=== PATIENT | female | born 1970 | race African-American/Black ===

== ENCOUNTER 2021-10-16 15:45 | Observation (INO) | payer BC, OTHER ==
[2021-10-16] MEDS ORDERED: dilTIAZem HCL 50 MG/10 ML - 10 ML VIAL IVPUSH ONE (16:24)
[2021-10-16] MEDS ORDERED: SODIUM CHLORIDE 0.9% 500 ML INFUS.BAG IV ONE (16:30)
[2021-10-16] MEDS ORDERED: dilTIAZem HCL 125 MG/25 ML - 25 ML VIAL ONE (16:49)
[2021-10-16 16:52] LABS: BASO % 0.9 % (0-2.0); EOS % 2.9 % (0-4.5); HEMATOCRIT 41.6 % (32.4-45.2); LYMPH % 31.1 % (8-40); MCHC 33.5 g/dl (32.0-36.0); MEAN CELL VOLUME 80.6 fl (80-96); MEAN PLT VOLUME 8.6 fl (7.5-11.1); MONO % 11.4 % (3.8-10.2); NEUT % 53.7 % (42.8-82.8); PLATELET COUNT 386 10^3/uL (134-434); RBC 5.17 M/mm3 (3.60-5.2); RDW 14.8 % (11.6-15.6); WHITE BLOOD COUNT 6.2 K/mm3 (4.0-10.0)
[2021-10-16 17:15] LABS: ALBUMIN 3.9 g/dl (3.4-5.0); CALCIUM 9.7 mg/dL (8.5-10.1)
[2021-10-16 17:16] LABS: BLOOD UREA NITROGEN 19.2 mg/dL (7-18); MAGNESIUM 2.3 mg/dL (1.8-2.4)
[2021-10-16 17:19] LABS: CREATININE 0.7 mg/dL (0.55-1.3)
[2021-10-16 17:21] LABS: BILIRUBIN,TOTAL 0.4 mg/dL (0.2-1); TOT PROT 8.1 g/dl (6.4-8.2)
[2021-10-16 17:27] LABS: INR 1.04 (0.83-1.09)
[2021-10-16 17:29] LABS: ACTIVATED PTT 36.2 SECONDS (25.2-36.5)
[2021-10-16] MEDS ORDERED: dilTIAZem HCL 30 MG TABLET ONE (18:46)
[2021-10-16] MEDS ORDERED: dilTIAZem HCL 30 MG TABLET PO SCH (22:00)
[2021-10-17 00:10] VITALS: BMI 27.7
[2021-10-17] MEDS: dilTIAZem HCL 30 MG TABLET PO SCH ×3 (00:13→13:30)
[2021-10-17] MEDS: ENOXAPARIN NA (PORCINE) 80 MG/0.8 ML DISP.SYRIN SQ SCH ×2 (00:13→10:09)
[2021-10-17 03:13] LABS: PH,URINE 7.5 (5.0-8.0); URINE APPEARANCE CLEAR; URINE BILIRUBIN NEGATIVE (NEGATIVE); URINE COLOR YELLOW; URINE GLUCOSE (UA) NEGATIVE (NEGATIVE); URINE KETONE NEGATIVE (NEGATIVE); URINE LEUK ESTERASE NEGATIVE (NEGATIVE); URINE NITRITE NEGATIVE (NEGATIVE); URINE PROTEIN NEGATIVE (NEGATIVE); URINE UROBILINOGEN 0.2 mg/dL (0.2-1.0)
[2021-10-17 03:15] LABS: METHADONE, UR NEGATIVE (NEGATIVE); PHENCYCLIDINE,URINE NEGATIVE (NEGATIVE)
[2021-10-17 03:17] LABS: COCAINE, UR NEGATIVE (NEGATIVE); OPIATES, URI NEGATIVE (NEGATIVE); URINE BARBITURATES NEGATIVE (NEGATIVE)
[2021-10-17 03:25] LABS: URINE AMPHETAMINES NEGATIVE (NEGATIVE); URINE BENZODIAZEPINES NEGATIVE (NEGATIVE)
[2021-10-17 08:58] LABS: BASO % 1.2 % (0-2.0); EOS % 3.7 % (0-4.5); HEMATOCRIT 38.8 % (32.4-45.2); HEMOGLOBIN 12.6 GM/dL (10.7-15.3); LYMPH % 31.1 % (8-40); MCH 26.5 pg (25.7-33.7); MCHC 32.5 g/dl (32.0-36.0); MEAN CELL VOLUME 81.6 fl (80-96); MEAN PLT VOLUME 8.6 fl (7.5-11.1); MONO % 11.8 % (3.8-10.2); NEUT % 52.2 % (42.8-82.8); PLATELET COUNT 298 10^3/uL (134-434); RBC 4.75 M/mm3 (3.60-5.2); WHITE BLOOD COUNT 5.7 K/mm3 (4.0-10.0)
[2021-10-17] MEDS ORDERED: amLODIPine BESYLATE 5 MG TABLET (FP) PO SCH (10:00)
[2021-10-17 10:24] LABS: MAGNESIUM 2.1 mg/dL (1.8-2.4)
[2021-10-17 10:26] LABS: ALBUMIN 3.6 g/dl (3.4-5.0); CALCIUM 9.1 mg/dL (8.5-10.1)
[2021-10-17 10:28] LABS: CREATININE 0.6 mg/dL (0.55-1.3)
[2021-10-17 10:29] LABS: BILIRUBIN,TOTAL 0.4 mg/dL (0.2-1); N-TERMINAL BNP 275.4 pg/ml (5-125); TOT PROT 7.1 g/dl (6.4-8.2)
[2021-10-17] MEDS ORDERED: ASPIRIN 81 MG CHEWABLE TABLETS PO SCH (12:00)
[2021-10-17] MEDS ORDERED: APIXABAN 5 MG TABLET PO SCH (14:00)
[2021-10-17] MEDS ORDERED: metoPROLOL SUCCINATE 25 MG TAB.SR.24H (FP) PO SCH (14:15)
[2021-10-17 15:03] VITALS: BP 113/68; PULSE 70; TEMP 98.4
== END 2021-10-17 18:02 | disposition home or self-care (01) ==
LOC: JER 15:45 → JERBED 18:43 → UNDOADMOB 18:43 → INTOOBSV 18:43 → J4S 10-17 00:03 → JERBED 10-17 00:03 → J4S 10-17 09:53 → JERBED 10-17 09:53
PROVIDERS: ADMIT Hospitalist; ATTEND Nurse Practitioner Acute Care
PROC: 3E033GC Introduction of Other Therapeutic Substance into Peripheral Vein, Percutaneous Approach (ICD-10-PCS; principal; 2021-10-17)
DX: I48.0 Paroxysmal atrial fibrillation (principal); I10 Essential (primary) hypertension; I34.1 Nonrheumatic mitral (valve) prolapse; J98.4 Other disorders of lung
CPT/HCPCS: 36415; 71046-TC-FY; 71270-TC; 80053; 80061; 80307; 81003; 83036; 83735; 83880; 84100; 84439; 84443; 84481; 84484; 85025; 85610; 85730; 93005; 93010; 93306-TC; 96372; 99285-25; C9803-CS; G0378; Q9967; U0003; U0005

== ENCOUNTER 2023-12-17 14:54 | Emergency (ER) | payer BC, OTHER ==
[2023-12-17 15:27] VITALS: TEMP 98.5; BMI 23.3
[2023-12-17] MEDS ORDERED: METOPROLOL TARTRATE 5 MG/5 ML VIAL ONE (16:21)
[2023-12-17] MEDS: METOPROLOL TARTRATE 5 MG/5 ML VIAL IVPUSH ONE (16:49)
[2023-12-17 17:02] LABS: BASO % 1.4 % (0-2.0); EOS % 3.1 % (0-4.5); HEMATOCRIT 40.9 % (32.4-45.2); HEMOGLOBIN 13.9 GM/dL (10.7-15.3); LYMPH % 33.3 % (8-40); MCH 28.5 pg (25.7-33.7); MCHC 33.9 g/dl (32.0-36.0); MEAN CELL VOLUME 84.1 fl (80-96); NEUT % 53.2 % (42.8-82.8); PLATELET COUNT 349 10^3/uL (134-434); RBC 4.87 M/mm3 (3.60-5.2); RDW 14.2 % (11.6-15.6); WHITE BLOOD COUNT 7.3 K/mm3 (4.0-10.0)
[2023-12-17 17:19] LABS: POTASSIUM 3.6 mmol/L (3.5-5.1)
[2023-12-17 17:20] LABS: INR 1.15 (0.83-1.09); PROTHROMBIN TIME (PATIENT) 13.2 SEC (9.7-13.0)
[2023-12-17 17:22] LABS: ALBUMIN 4.1 g/dl (3.4-5.0); CALCIUM 9.7 mg/dL (8.5-10.1); MAGNESIUM 2.2 mg/dL (1.8-2.4)
[2023-12-17 17:25] LABS: CREATININE 0.6 mg/dL (0.55-1.3); PHOSPHOROUS 3.5 mg/dL (2.5-4.9)
[2023-12-17 17:27] LABS: BILIRUBIN,TOTAL 0.3 mg/dL (0.2-1); TOT PROT 7.7 g/dl (6.4-8.2)
[2023-12-17] MEDS ORDERED: MAGNESIUM SULFATE IN WATER 2 GM/50 ML IVPB IVPB ONE (17:29)
[2023-12-17 17:30] LABS: N-TERMINAL BNP 255.6 pg/ml (5-125)
[2023-12-17] MEDS: LACTATED RINGERS SOLUTION 1000 ML INFUS.BAG IV ONE (17:32)
[2023-12-17] MEDS: MAGNESIUM SULFATE IN WATER 2 GM/50 ML IVPB IVPB ONE (17:32)
[2023-12-17] MEDS ORDERED: METOPROLOL TARTRATE 25 MG TABLET (FP) ONE (18:51)
[2023-12-17] MEDS: METOPROLOL TARTRATE 25 MG TABLET (FP) PO ONE (18:52)
[2023-12-17 19:42] VITALS: BP 134/81; PULSE 72; RESP 20
== END 2023-12-17 19:35 | disposition home or self-care (01) ==
LOC: JER 14:54
PROC: 3E033GC Introduction of Other Therapeutic Substance into Peripheral Vein, Percutaneous Approach (ICD-10-PCS; principal; 2023-12-17)
PROC: 3E033GC Introduction of Other Therapeutic Substance into Peripheral Vein, Percutaneous Approach (ICD-10-PCS; 2023-12-17)
DX: R00.2 Palpitations (principal); I48.91 Unspecified atrial fibrillation; R42 Dizziness and giddiness
CPT/HCPCS: 36415; 71046-TC-FY; 80053; 83735; 83880; 84100; 84484; 85025; 85610; 85730; 93005; 93010; 99291